=== PATIENT | male | born 1995 | race Two or more races ===

== ENCOUNTER 2019-06-03 22:23 | Emergency (ER) | payer MEDICAID, OTHER ==
[~2019-06-03] VITALS: Ht 172.7 cm; Wt 97.9 kg
--- NOTE | 2019-06-03 22:31 | NUR ---
NO ANSWER FOR KELL@ [id number]
[2019-06-03 22:36] VITALS: BP 144/67
[2019-06-03] MEDS ORDERED: DIPHENHYDRAMINE 50 MG/ML, 1ML IM ONE (23:00)
[2019-06-03] MEDS ORDERED: FAMOTIDINE 20 MG TABLET PO ONE (23:00)
[2019-06-03] MEDS ORDERED: DIPHENHYDRAMINE 50 MG/ML, 1ML ONE (23:13)
[2019-06-03] MEDS ORDERED: FAMOTIDINE 20 MG TABLET ONE (23:13)
--- NOTE | 2019-06-03 23:32 | NUR ---
Patient/Caregiver given discharge instructions and they have confirmed that they understand the instructions. Patient ambulatory with steady gait.
== END 2019-06-03 23:33 | disposition home or self-care (01) ==
LOC: ED 23:00
DX: L50.0 Allergic urticaria (principal); E78.5 Hyperlipidemia, unspecified; E11.9 Type 2 diabetes mellitus without complications
CPT/HCPCS: 96372; 99283; J1200

== ENCOUNTER 2019-07-22 13:10 | Outpatient (CLI) | payer OTHER | END 2019-07-22 23:59 | disposition home or self-care (01) | LOC: WOUND 13:10 | PROVIDERS: ATTEND Nurse Practitioner Family | DX: T81.89XA Other complications of procedures, not elsewhere classified, initial encounter (principal); L02.212 Cutaneous abscess of back [any part, except buttock and flank]; E78.5 Hyperlipidemia, unspecified; E11.9 Type 2 diabetes mellitus without complications; Y83.8 Other surgical procedures as the cause of abnormal reaction of the patient, or of later complication, without mention of misadventure at the time of the procedure; Y92.89 Other specified places as the place of occurrence of the external cause | CPT/HCPCS: 97602; 99204; 99214 ==

== ENCOUNTER 2020-01-05 06:38 | Emergency (ER) | payer OTHER ==
[~2020-01-05] VITALS: Ht 172.7 cm; Wt 95.4 kg
--- NOTE | 2020-01-05 07:09 | NUR ---
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 AILIN DODGE AT BEDSIDE, PT ASSESSMENT REVIEWED, ORDERS REC'D. CALL LIGHT W/I REACH.
[2020-01-05] MEDS ORDERED: IBUPROFEN 600 MG TABLET ONE (07:12)
--- NOTE | 2020-01-05 07:16 | NUR ---
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 CALL LIGHT W/I REACH
--- NOTE | 2020-01-05 07:17 | NUR ---
MAI RN: ANA RPT TO [facility]
[2020-01-05] MEDS ORDERED: IBUPROFEN 600 MG TABLET PO ONE (07:30)
[2020-01-05] MEDS ORDERED: DEXAMETHASONE 4 MG/ML, 1ML IM ONE (08:30)
[2020-01-05 08:40] VITALS: BP 119/71
[2020-01-05] MEDS ORDERED: DEXAMETHASONE 4 MG/ML, 5ML ONE (08:41)
--- NOTE | 2020-01-05 08:47 | NUR ---
BEDSIDE REPORT FROM DIEGO CLARK
--- NOTE | 2020-01-05 10:00 | NUR ---
AFTER REVIEW OF PRECAUTIONS/QUARATINE AND SXS TO WATCH FOR IN R/T COVID AND OR STREP PATIENT DISCHARGED HOME
== END 2020-01-05 10:02 | disposition home or self-care (01) ==
LOC: ED 07:59
DX: J02.8 Acute pharyngitis due to other specified organisms (principal); Z20.828 Contact with and (suspected) exposure to other viral communicable diseases; R50.9 Fever, unspecified; R00.0 Tachycardia, unspecified; E78.5 Hyperlipidemia, unspecified
CPT/HCPCS: 36415; 71045; 87081; 87635; 87880; 96372; 99284; J1100